=== PATIENT | male | born 1990 | race African-American/Black ===

== ENCOUNTER 2020-03-29 14:00 | Emergency (ER) | payer OTHER ==
[2020-03-29] MEDS ORDERED: DIPHTH,PERTUSS(ACELL),TET 0.5 ML DISP.SYRIN IM ONE ×2 (14:03→14:08)
[2020-03-29 14:06] VITALS: BP 109/71; PULSE 62; TEMP 97.8; BMI 18.0
--- NOTE | 2020-03-29 14:07 | PDOC ---
Rapid Medical Evaluation Time Seen by Provider: 03/29/20 14:02 Medical Evaluation: 03/29/20 14:02 Pt presents to the ER with a laceration to his R 3rd finger. R hand dominant. Does not remember the date of his last tetanus shot. Exam:1 cm laceration to the R volar 3rd digit Orders: boostrix Pt to proceed to FT for further evaluation Discharge Disposition - Diagnosis Laceration - Referrals - Patient Instructions - Post Discharge Activity
--- NOTE | 2020-03-29 14:29 | PDOC ---
History of Present Illness - General Chief Complaint: Injury Stated Complaint: CUT FINGER Time Seen by Provider: 03/29/20 14:02 History Source: Patient Exam Limitations: No Limitations - History of Present Illness Initial Comments: 03/29/20 14:25 29-year-old male presents to ED with injury to his right third digit. 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 Patient states unknown last tetanus denies any medical history including diabetes immunosuppression. Is this a multiple visit Asthma Patient?: No Timing/Duration: 1/2 hour Severity: mild Associated Symptoms: reports: denies symptoms Past History - Travel History Traveled outside of the country in the last 30 days: No Close contact w/someone who was outside of country & ill: No - Medical History Allergies/Adverse Reactions: Allergies Allergy/AdvReac Type Severity Reaction Status Date / Time No Known Allergies Allergy Verified 03/29/20 14:03 - Psycho-Social/Smoking History Patient Lives Alone: No Lives with/in: parents Smoking History: Never smoked - Substance Abuse Hx (Audit-C & DAST Scrn) In the last yr the pt used illegal drug/Rx for NonMed reason: No Score: Yes response is considered Positive: 0 Screen Result (Positive result requires Nsg. DAST-10): Negative Review of Systems - Review of Systems Able to Perform ROS?: No Constitutional: No: Symptoms Reported Musculoskeletal: Yes: See HPI Integumentary: Yes: See HPI Neurological: No: Symptoms reported *Physical Exam - Vital Signs Last Vital Signs Temp Pulse Resp BP Pulse Ox 97.8 F 62 15 109/71 99 03/29/20 14:02 03/29/20 14:02 03/29/20 14:02 03/29/20 14:02 03/29/20 14:02 - Physical Exam General Appearance: Yes: Nourished, Appropriately Dressed. No: Apparent Distress Extremity: positive: Normal Capillary Refill, Other (noted superficial lac over the rt 3rd dip joint extending to base of nail bed) Neurologic: positive: Motor Strength 5/5 (FROM OF FINGER) Procedures - Laceration/Wound Repair Right Finger Wound Length: to 2.5 cm Wound Explored: clean Wound's Depth, Shape: superficial, linear Irrigated w/ Saline: Yes Betadine Prep: Yes Wound Repaired With: Dermabond Splint Applied: Yes Type of Splint Applied: metal finger splint ED Treatment Course - Medications Given in the ED: ED Medications Discontinued Medications Generic Name Dose Route Start Last Admin Trade Name Josiah PRN Reason Stop Dose Admin Diphtheria/Tetanus/Acell Pertussis 0.5 ml 03/29/20 14:03 03/29/20 14:11 Boostrix - IM 03/29/20 14:04 0.5 ml .ONCE ONE Administration Medical Decision Making - Medical Decision Making 03/29/20 14:28 Chief complaint: Right finger laceration sustained from work. Not up-to-date on tetanus.. Exam: Patient is superficial nonsuturable laceration to the volar aspect of right third DIP extending to the nail base. Plan: Area cleansed with Betadine and saline we will apply Dermabond and stabilized with a metal finger splint. Discharge - Discharge Information Problems reviewed: Yes Clinical Impression/Diagnosis: Laceration Condition: Improved Disposition: HOME - Follow up/Referral - Patient Discharge Instructions Patient Printed Discharge Instructions: DI for Laceration Repair With Dermabond Additional Instructions: Wear finger splint for the next 5 days to allow healing and adhesion of the glue. Do not allow areas also to get wet as this will not prevent the wound from lifting - Post Discharge Activity
== END 2020-03-29 14:56 | disposition home or self-care (01) ==
LOC: JERFT 14:00
PROC: 3E0234Z Introduction of Serum, Toxoid and Vaccine into Muscle, Percutaneous Approach (ICD-10-PCS; principal; 2020-03-29)
DX: S61.214A Laceration without foreign body of right ring finger without damage to nail, initial encounter (principal)
CPT/HCPCS: 90715; 99284-25

== ENCOUNTER 2020-04-13 11:24 | Emergency (ER) | payer OTHER ==
[2020-04-13 11:32] VITALS: BP 119/42; PULSE 66; TEMP 98; BMI 16.6
--- NOTE | 2020-04-13 11:44 | PDOC ---
History of Present Illness - General Chief Complaint: Wound Stated Complaint: RECHECK FINGER Time Seen by Provider: 04/13/20 11:31 History Source: Patient Exam Limitations: No Limitations - History of Present Illness Initial Comments: 04/13/20 11:41 29-year-old male [id number] denies past medical history presents for wound check. Patient sustained laceration to right middle finger on March 29, 2020. Denies pain, fever, swelling to area or any complaint. Needs note for work. ROS: as above PE: GENERAL: well-appearing, NAD HEAD: NCAT EYES: Pupils equal, round and reactive to light, sclera anicteric, conjunctiva clear ENT: pharynx: no erythema, no exudate, uvula midline NECK: supple CHEST: nontender RESP: clear, no w/r/r CARDIO: rrr, no m/g/r ABD: +BS, soft, nontender, non distended BACK: no midline spinal ttp, no CVAT EXTREMITIES: Normal range of motion, no edema NEUROLOGICAL: Normal speech, normal gait SKIN: Well-healing superficial laceration to DIP of right middle finger without surrounding erythema, streaking, swelling, drainage or warmth to palpation Is this a multiple visit Asthma Patient?: No Past History - Medical History Allergies/Adverse Reactions: Allergies Allergy/AdvReac Type Severity Reaction Status Date / Time No Known Allergies Allergy Verified 04/13/20 11:28 Home Medications: Ambulatory Orders NK [No Known Home Medication] 04/13/20 COPD: No - Psycho-Social/Smoking History Smoking History: Never smoked - Substance Abuse Hx (Audit-C & DAST Scrn) How often the patient has six or more drinks on one occasion: Never Score: In Men: 4 or > Positive; In Women: 3 or > Positive: 0 Screen Result (Pos requires Nsg. Audit-10AR): Negative In the last yr the pt used illegal drug/Rx for NonMed reason: No Score: Yes response is considered Positive: 0 Screen Result (Positive result requires Nsg. DAST-10): Negative *Physical Exam - Vital Signs Last Vital Signs Temp Pulse Resp BP Pulse Ox 98 F 66 16 119/42 L 99 04/13/20 11:28 04/13/20 11:28 04/13/20 11:28 04/13/20 11:28 04/13/20 11:28 Medical Decision Making - Medical Decision Making 04/13/20 11:43 29-year-old male [id number] denies past medical history presents for wound check. Patient sustained laceration to right middle finger on March 29, 2020. Denies pain, fever, swelling to area or any complaint. Needs note for work. Applied bacitracin and sterile dressing to wound Note for work provided Discharge - Discharge Information Problems reviewed: Yes Clinical Impression/Diagnosis: Visit for wound check Condition: Stable Disposition: HOME - Admission No - Follow up/Referral - Patient Discharge Instructions Additional Instructions: Continue to keep area clean and dry, wash with warm water and soap, dab dry Apply bacitracin to area twice a day Return to ED if fever, chills, swelling, pain or any concerning symptom - Post Discharge Activity Work/Back to School Note: Back to Work
== END 2020-04-13 12:08 | disposition home or self-care (01) ==
LOC: JERFT 11:24
DX: Z48.00 Encounter for change or removal of nonsurgical wound dressing (principal)
CPT/HCPCS: 99282-25

== ENCOUNTER 2022-02-09 18:45 | Emergency (ER) | payer OTHER ==
[2022-02-09 19:00] VITALS: BP 107/63; PULSE 75; TEMP 97.8; BMI 20.7
== END 2022-02-09 19:58 | disposition home or self-care (01) ==
LOC: FER 18:45
DX: S29.012A Strain of muscle and tendon of back wall of thorax, initial encounter (principal); V49.50XA Passenger injured in collision with unspecified motor vehicles in traffic accident, initial encounter
CPT/HCPCS: 99281-25